=== PATIENT | female | born 1940 | race Caucasian/White ===

== ENCOUNTER → 2021-06-06 | Day surgery (SDC) | payer MEDICARE, OTHER ==
[~2021-06-06] VITALS: Ht 167.6 cm; Wt 72.6 kg
[~2021-06-06] MED LIST: ASCORBIC ACID500 MG PO; BIOTIN5 MG PO; CENTRUM ADULTS1 EACH PO; CITRATE OF MAG296 ML PO; COREG 3.125M3.125 MG PO; HCTZ12.5 MG PO; LEXAPRO 10MG TA10 MG PO
== END | disposition home or self-care (01) ==
LOC: FAS 13:00
DX: H25.812 Combined forms of age-related cataract, left eye (principal); I10 Essential (primary) hypertension; Z88.1 Allergy status to other antibiotic agents; Z88.5 Allergy status to narcotic agent; Z79.899 Other long term (current) drug therapy
CPT/HCPCS: J2250; V2632

== ENCOUNTER → 2021-07-04 | Day surgery (SDC) | payer MEDICARE, OTHER ==
[~2021-07-04] VITALS: Ht 167.6 cm; Wt 72.6 kg
[~2021-07-04] MED LIST changes: +CALCIUM CITRAT200 MG PO; +CO Q-10100 MG PO; +KRILL OIL500 MG PO
== END | disposition home or self-care (01) ==
LOC: FAS 12:24
DX: E11.36 Type 2 diabetes mellitus with diabetic cataract (principal); H25.813 Combined forms of age-related cataract, bilateral; I10 Essential (primary) hypertension; K21.9 Gastro-esophageal reflux disease without esophagitis; Z79.899 Other long term (current) drug therapy
CPT/HCPCS: J2250; V2632